=== PATIENT | female | born 1945 | race Caucasian/White ===

== ENCOUNTER → 2020-11-23 | Outpatient (CLI) | payer MEDICARE ==
[2017-08-30 16:00] VITALS: BP 168/72
[~2020-11-23] MED LIST: ALBU2.5V8 IH; ALPR0.254 PO; AMIT100T PO; AMIT25TA PO; ASPI-886 PO; ATOR20TA PO; BENZ-8 PO; DOXY100C2 PO; ESTR0.62 PO; FLUT12AE2 IH; FLUT1DIS5 IH; FURO20TA3 PO; GLIP2.5T4 PO; GLIP5TAB10 PO; HYDR-2765 PO; HYDR-3164 PO; IBUP-1027 PO; LEVO750T31 PO; LIDO700A4 TP; LISI10TA16 PO; MOME17SP NS; MONT10TA49 PO; NYST60PO TP; OMEP40CA7 PO; ORPH100T PO; PARO20TA3 PO; RANI300C PO; SIMV10TA15 PO; TRAM-48 PO
--- NOTE | 2020-11-23 17:19 | KCIC ---
EXAM: Right shoulder, 3 views. HISTORY: Pain. COMPARISON: 07/23/2016 FINDINGS: 3 views of the right shoulder obtained. There has been distal right clavicular resection. T here are small ossicles overlying the acromioclavicular space. There is no acute fracture, dislocatio n or subluxation. There is cervical spinal fusion instrumentation. There are few calcified annulus wi thin the right lung. There are healed rib fractures. IMPRESSION: Distal right clavicular resection. No acute osseous finding. Electronically signed by: Tanya Marsh MD (11/23/2020 5:16 PM) [id number]
--- NOTE | 2020-11-23 17:30 | KCIC ---
Three-view bilateral knee radiographs 11/23/2020 CLINICAL HISTORY: Bilateral knee pain. Standing AP, lateral and oblique digital radiographs of both knees were obtained. There is diffuse os teopenia of the visualized bony structures. Mild to moderate degenerative changes are seen involving all 3 compartments of both knees. These consist of varying degrees of joint compartment narrowing, manzo bchondral sclerosis and associated osteophyte formation. These particularly involve the medial compar tments of both knees along with the patellofemoral compartments. No fracture or dislocation of either knee is seen. Patchy areas of sclerosis which may represent areas of bone infarction are seen involv ing the distal left femur and proximal left tibia. IMPRESSION: Degenerative changes are seen involving both knees as discussed above. No acute osseous a bnormality is seen. Electronically signed by: Drake Castañeda MD (11/23/2020 5:28 PM) [id number]
--- NOTE | 2020-11-23 17:43 | KCIC ---
EXAM: XR CERVICAL SPINE 2-3V, XR THORACIC SPINE 3VIEWS. HISTORY: Fall, neck and back pain. COMPARISON: None. FINDINGS: Anterior cervical discectomy and fusion changes are noted at C5-6. An anterior plate is fix ed by screws at each level. No fractures are identified. There is no prevertebral soft tissue swellin g. Degenerative disc disease is moderate at C6-7 and mild to moderate from C3 through C5. There is no prevertebral soft tissue swelling. Facet osteoarthritis is severe on the right at C2-C4 and moderate elsewhere. The alignment of the thoracic spine is maintained. There is a mild lumbar levoscoliosis, incompletely visualized. Osteopenia is at least moderate. Intervertebral disc heights are maintained. Cholecystectomy clips are noted. There are atherosclerotic calcifications of the right carotid bulb. IMPRESSION: 1. No fractures are identified. CT is more sensitive if there is persistent concern. 2. C5-6 anterior cervical discectomy and fusion. 3. Moderate to severe cervical facet osteoarthritis. Mild to moderate degenerative disc disease as ab ove. Electronically signed by: Arpan Huang MD (11/23/2020 5:41 PM) [id number]
== END ==
LOC: KCIC 10:43
PROVIDERS: ATTEND Family Medicine
DX: M17.0 Bilateral primary osteoarthritis of knee (principal); M47.814 Spondylosis without myelopathy or radiculopathy, thoracic region; M51.34 Other intervertebral disc degeneration, thoracic region; M47.812 Spondylosis without myelopathy or radiculopathy, cervical region; M43.22 Fusion of spine, cervical region; Z90.49 Acquired absence of other specified parts of digestive tract
CPT/HCPCS: 72040; 72072; 73030; 73562-50